=== PATIENT | female | born 1985 | race Two or more races ===

== ENCOUNTER 2019-10-26 11:57 | Outpatient (CLI) | payer OTHER ==
[~2019-10-26 11:57] MED LIST: ALDOMET250 MG PO; LEVO-T50 MCG PO; PRENATABS FA TA1 TAB PO; ZANTAC150 M3 PO
== END 2019-10-26 13:01 | disposition home or self-care (01) ==
LOC: NST 11:57
DX: Z34.83 Encounter for supervision of other normal pregnancy, third trimester (principal)

== ENCOUNTER 2019-11-10 08:18 | Outpatient (CLI) | payer OTHER | END 2019-11-10 09:18 | disposition home or self-care (01) | LOC: NST 08:18 | PROVIDERS: ATTEND Obstetrics & Gynecology Maternal & Fetal Medicine | DX: Z34.83 Encounter for supervision of other normal pregnancy, third trimester (principal) ==

== ENCOUNTER 2019-11-10 10:30 | Inpatient (IN) | payer OTHER ==
[~2019-11-10] VITALS: Ht 170.2 cm; Wt 3.6 kg
[2019-11-25] MEDS ORDERED: PANTOPRAZOLE SO40 MG PO (09:35)
[2019-11-25] MEDS ORDERED: METHYLDOPA250 MG PO (09:35)
== END 2019-11-28 12:28 | disposition home or self-care (01) | DRG 788 ==
LOC: SURG-SUITE 11-25 06:39 → O/R 11-25 06:39 → OB/GYN 11-25 07:00 → SURG-SUITE 11-25 10:15 → OB/GYN 11-25 10:30 → SURG-SUITE 11-28 12:28
PROVIDERS: ADMIT Obstetrics & Gynecology; ATTEND Obstetrics & Gynecology Maternal & Fetal Medicine
PROC: 4A1HXFZ Monitoring of Products of Conception, Cardiac Rhythm, External Approach (ICD-10-PCS; 2019-11-25)
PROC: 3E033VJ Introduction of Other Hormone into Peripheral Vein, Percutaneous Approach (ICD-10-PCS; 2019-11-25)
PROC: 10D00Z1 Extraction of Products of Conception, Low, Open Approach (ICD-10-PCS; principal; 2019-11-25 07:00)
DX: O82 Encounter for cesarean delivery without indication (principal); O34.211 Maternal care for low transverse scar from previous cesarean delivery; Z3A.38 38 weeks gestation of pregnancy; Z37.0 Single live birth; Z09 Encounter for follow-up examination after completed treatment for conditions other than malignant neoplasm; Z86.19 Personal history of other infectious and parasitic diseases